=== PATIENT | female | born 1985 | race Hispanic/Latino ===

== ENCOUNTER 2016-10-29 14:54 | Emergency (ER) | payer OTHER ==
[~2016-10-29] VITALS: Ht 165.1 cm; Wt 86.2 kg
[~2016-10-29 14:54] MED LIST: ALBUTEROL0.09 MG/A1 INH; AUGMENTIN 500M500 MG PO; AUGMENTIN 875 M1 TAB PO; CHERATUSSIN AC120 ML PO; CYCLOBENZAPRINE10 M1 PO; CYCLOBENZAPRINE5 M2 PO; FLEXERIL10 MG PO; IBUPROFEN800 MG PO; MELOXICAM15 MG; MOBIC15 MG PO; NAPROXEN500 M2 PO; NASONEX0.05 MG/Ac NAS; NORCO 325 MG-51 TAB PO; PERCOCET 325 MG1 TA2 PO; PREDNISONE10 MG PO; TRAMADOL50 MG PO; ULTRAM50 M1 PO; VICODIN 5-3001 EACH PO; ZOFRAN4 M1 SL
[2016-10-29 14:57] VITALS: BP 114/75
--- NOTE | 2016-10-29 15:42 | ED INFLUENZA/URI COMPLAINT ---
History of Present Illness General Chief Complaint: Upper Respiratory Sx/Fever Stated Complaint: COUGH; L EAR PAIN Source: patient Exam Limitations: no limitations Vital Signs & Intake/Output Vital Signs & Intake/Output Vital Signs Date Time Temp Pulse Resp B/P Pulse O2 O2 Flow FiO2 Ox Delivery Rate 10/29 1457 97.5 82 18 114/75 97 Room Air Allergies Coded Allergies: erythromycin base (Severe, THROAT STARTS TO CLOSE UP 02/07/16) shellfish derived (Intermediate, HIVES 02/07/16) Reconcile Medications Azithromycin (Zithromax) 250 MG TABLET 1 DP PO AD otitis media 2 the first day followed by 1 for days 2-5 Mometasone Furoate (Nasonex) 50 MCG SPRAY.PUMP 2 SPRAY NASB DAILY congestion Robitussin AC (Guaifenesin-Codeine Syrup) 200 MG-20 MG/10 ML LIQUID 5 ML PO Q6HR PRN COUGH Tramadol HCl (Ultram) 50 MG TABLET 1 TAB PO TIDPRN Left shoulder pain Triage Note: COMPLAINS OF COUGH AND L EAR PAIN/PRESSURE X 1 WEEK Triage Nurses Notes Reviewed? yes Onset: Gradual Duration: week(s): (2) Timing: recent history Severity: moderate Severity Numbers: 8 Prior Episodes/Possible Cause: occassional episodes No Modifying Factors: none : No Patient currently breastfeeds: No HPI: Patient is a 31-year-old female presenting to the emergency Department chief complaint of upper respiratory congestion, sinus pain, left ear pain has been going on for the past 2 weeks. She saw her primary care physician initially and was found amoxicillin. She reports it has not helped symptoms. Has an using [id number] cough medication without relief. Denies any nausea or vomiting. Tactile fevers and chills. She did not get the flu shot this year. Denies abdominal pain. No sick contacts or recent travel. No urinary symptoms. Denies chance of . Denies any chest pain or palpitations. (FABI OSORIO) Past History Travel History Traveled to [place] past 21 day No Medical History Any Pertinent Medical History? see below for history Neurological: NONE EENT: NONE Cardiovascular: NONE Respiratory: asthma Gastrointestinal: NONE Hepatic: NONE Renal: NONE Musculoskeletal: NONE Psychiatric: anxiety Endocrine: NONE Blood Disorders: NONE Cancer(s): NONE Tetanus Vaccine: 07/29/16 Surgical History Surgical History: , tubal ligation, Septoplasty Psychosocial History What is your primary language Marshallese Tobacco Use: Never used ETOH Use: denies use Illicit Drug Use: denies illicit drug use Family History Hx Contributory? No (FABI OSORIO) Review of Systems Review of Systems Constitutional: Reports: fever, malaise. Comments Review of systems: See HPI, All other systems negative. Constitutional, no weight loss HEENT: No visual changes Cardiovascular: No chest pain ,palpitation , orthopnea or ankle swelling Skin, no jaundice no rashes Respiratory: No dyspnea sputum or hemoptysis GI: No nausea no vomiting : No dysuria No hematuria Muscle skeletal: no back pain, no neck pain, Neurologic: No numbness no confusion Psych: No stress anxiety Immunology: No splenectomy or history of AIDS (FABI OSORIO) Physical Exam Physical Exam General Appearance: well developed/nourished, no apparent distress, alert, awake , comfortable Ears, Nose, Throat: LEFT TYMPANIC MEMBRANE IS BULGING AND ERYTHEMATOUS Comments: Well-developed well-nourished person in no acute distress HEENT: Normal EENT exam, extraocular motion intact, no nystagmus. Pupils equally round and reactive to light and accommodation. Nose is atraumatic. External auditory canal clear bilaterally, left tympanic membrane is erythematous and bulging. Right tympanic membrane is clear. Pharynx is mildly erythematous, no exudate, clearing secretions without difficulty. No swelling or edema. Neck: Supple, no lymphadenopathy, normal range of motion without pain or tenderness Cardiovascular: Regular rate and rhythms no murmurs rubs or gallops, normal JVP Respiratory: Chest nontender. No respiratory distress.breath sounds clear to auscultation bilaterally Extremity: No edemA Neuro: Alert oriented x3 Skin: No appreciable rash on exposed skin, skin is warm and dry. Psych: Mood and affect is normal, memory and judgment is normal. Core Measures Severe Sepsis Present: No Septic Shock Present: No (FABI OSORIO) Progress Differential Diagnosis: influenza, pneumonia, pharyngitis, sinusitis Plan of Care: Symptoms have been going on for the past 2 weeks. No indication for. At this time. Patient does have left otitis media. She will be treated for those infections. She is requesting a Z-Gurjit, she was informed that a Z-Gurjit is not first line for otitis media. She wants to try it anyway. She'll follow-up with her primary care physician next week. Patient nontoxic. Initial ED EKG: none (FABI OSORIO) Departure Departure Time of Disposition: 1547 Disposition: HOME OR SELF CARE Condition: Stable Clinical Impression Primary Impression: Otitis media Qualifiers: Otitis media type: unspecified Laterality: left Chronicity: unspecified Qualified Code: H66.92 - Otitis media, unspecified, left ear Referrals: XANDER OLIVARES MD (PCP/Family) Additional Instructions: Follow-up with your primary care physician call to make an appointment. Increase fluids. Take Z-Gurjit as prescribed. Use Nasonex as prescribed for congestion. Take Robitussin with codeine as prescribed for cough. Return for worsening symptoms. Departure Forms: Customer Survey General Discharge Information Prescriptions: Current Visit Scripts Azithromycin (Zithromax) 1 DP PO AD #6 TAB 2 the first day followed by 1 for days 2-5 Mometasone Furoate (Nasonex) 2 SPRAY NASB DAILY #1 INHAL Robitussin AC (Guaifenesin-Codeine Syrup) 5 ML PO Q6HR PRN COUGH #200 ML (FABI OSORIO) PA/[employer] Co-Sign Statement Statement: ED Attending supervision documentation- [] I saw and evaluated the patient. I have also reviewed all the pertinent lab results and diagnostic results. I agree with the findings and the plan of care as documented in the PA's/[employer]'s documentation. [X] I have reviewed the ED Record and agree with the PA's/[employer]'s documentation. [] Additions or exceptions (if any) to the PAs/[employer]'s note and plan are summarized below: [] (SHELLY VELAZQUEZ,ASIF)
[2016-10-29] MEDS ORDERED: GUAIFENESIN-COD10 ML PO (15:52)
[2016-10-29] MEDS ORDERED: NASONEX17 GM NASB (15:52)
[2016-10-29] MEDS ORDERED: ZITHROMAX250 M2 PO (15:52)
== END 2016-10-29 16:07 ==
LOC: ERH 14:54
DX: H66.92 Otitis media, unspecified, left ear (principal)

== ENCOUNTER 2017-01-02 08:21 | Emergency (ER) | payer OTHER ==
[~2017-01-02] VITALS: Ht 165.1 cm; Wt 86.2 kg
[~2017-01-02 08:21] MED LIST changes: +GUAIFENESIN-COD10 ML PO; +NASONEX17 GM NASB; +ZITHROMAX250 M2 PO
--- NOTE | 2017-01-02 08:27 | ED DYSPNEA/ASTHMA COMPLAINT ---
History of Present Illness General Chief Complaint: Dyspnea (COPD, CHF, Other) Stated Complaint: SOB Source: patient Exam Limitations: no limitations Vital Signs & Intake/Output Vital Signs & Intake/Output Vital Signs Date Time Temp Pulse Resp B/P Pulse O2 O2 Flow FiO2 Ox Delivery Rate 01/02 1043 98.4 74 18 116/58 100 Room Air 01/02 0823 97.1 88 18 110/68 100 Room Air Allergies Coded Allergies: erythromycin base (Severe, THROAT STARTS TO CLOSE UP 02/07/16) shellfish derived (Intermediate, HIVES 02/07/16) Reconcile Medications No Known Home Medications Triage Nurses Notes Reviewed? yes Onset: Abrupt Duration: 6:30 am THIS MORNING Timing: single episode today Severity: moderate, severe Activities at Onset: sleep Prior Episodes/Possible Cause: no prior episodes Associated Symptoms: TROUBLE BREATHING : Yes Patient currently breastfeeds: No HPI: 31 year old female presents with chest pain radiating to left shoulder which woke her up from sleep. Pain radiates to her left shoulder. Doesn't feel like previous asthma. Positive nausea and acid refulx. Pain is worse with palpation , denies any pain with positioning. No recent trauma or injury. She has in indwelling Mirena and states that 2 days ago she checked at home test that she's been feeling nauseous and not herself. She states that home test was positive. No personal or family history of clotting disorders. She does not smoke. No recent sore throat cough or cold. Denies any fever or chills. Patient states that she is worried she might be as all of her other pregnancies have been through contraception. Past History Travel History Traveled to [place] past 21 day No Medical History Any Pertinent Medical History? see below for history Neurological: NONE EENT: NONE Cardiovascular: NONE Respiratory: asthma Gastrointestinal: NONE Hepatic: NONE Renal: NONE Musculoskeletal: NONE Psychiatric: anxiety Endocrine: NONE Blood Disorders: NONE Cancer(s): NONE Other Medical Hx: mirena placed 2014 Tetanus Vaccine: 07/29/16 Surgical History Surgical History: , tubal ligation, Septoplasty Psychosocial History What is your primary language Rw[place]an Tobacco Use: Never used ETOH Use: occasional use Illicit Drug Use: denies illicit drug use Family History Hx Contributory? No Review of Systems Review of Systems Constitutional: Denies: chills, fever. EENTM: Reports: no symptoms. Respiratory: Reports: short of breath (CAN'T TAKE DEEP BREATH). Denies: cough, sputum production. Cardiovascular: Reports: chest pain. GI: Denies: abdominal pain. Genitourinary: Reports: no symptoms. Musculoskeletal: Reports: no symptoms. Skin: Reports: no symptoms. Neurological/Psychological: Reports: no symptoms. Hematologic/Endocrine: Denies: bruising, bleeding, polyuria, polydipsia. Immunologic/Allergic: Denies: splenectomy. All Other Systems: Reviewed and Negative Physical Exam Physical Exam General Appearance: well developed/nourished, alert, awake Head: atraumatic, normal appearance Eyes: Bilateral: normal appearance, PERRL, EOMI. Ears, Nose, Throat: normal pharynx, normal ENT inspection, abnormal Tympanic (R) Respiratory: normal breath sounds, chest non-tender, no respiratory distress Cardiovascular: regular rate/rhythm Peripheral Pulses: 2+ radial (R), 2+ radial (L) Neurologic/Psych: no motor/sensory deficits, awake, alert, oriented x 3 Core Measures ACS in differential dx? Yes Severe Sepsis Present: No Septic Shock Present: No All Positive = PERC Ruled Out: Positive: age < 50 years, heart rate < 100 bpm, O2 sat > 94%, no hemoptysis, no prior DVT or PE, no unilateral leg swellin, no surgery/trauma w/in 4w. Negative : no hormone use. Progress Differential Diagnosis: asthma, bronchitis, costochondritis, musculoskeletal pain, pulmonary embolism, pneumonia, pneumothorax, unstable angina Plan of Care: Orders Procedure Date/time Status TROPONIN LEVEL 01/02 847 Complete PARTIAL THROMBOPLASTIN TIME 01/02 847 Complete PROTHROMBIN TIME 01/02 847 Complete HUMAN BETA HCG SCREEN 01/02 847 Complete D-DIMER 01/02 847 Complete COMPREHENSIVE METABOLIC PANEL 01/02 847 Complete CBC WITHOUT DIFFERENTIAL 01/02 847 Complete URINE 01/03 836 Complete EKG 01/02 830 Active Laboratory Tests 01/02/17 0904: Anion Gap 7, Estimated GFR > 60, BUN/Creatinine Ratio 12.9, Glucose 106 H, Calcium 9.2, Total Bilirubin 0.7, AST 28, ALT 50, Alkaline Phosphatase 71, Troponin I < 0.01, Total Protein 7.5, Albumin 4.0, Globulin 3.5, Albumin/ Globulin Ratio 1.1, Total Beta HCG NEGATIVE, PT 12.1, INR 1.15, APTT 29, D-Dimer 595 H, CBC w Diff NO MAN DIFF REQ, RBC 4.23, MCV 88.2, MCH 30.1, RDW 12.5, MPV 7.4, Gran % 69.3, Lymphocytes % 22.0, Monocytes % 6.3, Eosinophils % 2.1, Basophils % 0.3, Absolute Granulocytes 4.7, Absolute Lymphocytes 1.5, Absolute Monocytes 0.4, Absolute Eosinophils 0.1, Absolute Basophils 0, PUBS MCHC 34.2 01/02/17 0845: Urine Test NEGATIVE LABS, ORDERED. SUSPECT PE, ELEVEATED D-DIMER. NEGATIVE. CT ANGIOGRAM ORDERED. CT NEGATIVE. (SHELLY VELAZQUEZ,ASIF) Diagnostic Imaging: Viewed by Me: CT Scan. Discussed w/RAD: CT Scan. Radiology Impression: PATIENT: ANDRE HASTINGS PRESENT AGE: 31 PATIENT ACCOUNT NO: [id number] : 85 LOCATION: [facility] ORDERING PHYSICIAN: ASIF BRAVO MD SERVICE DATE: 01/02/17 EXAM TYPE: CAT - CTA CHEST-PULMONARY EMBOLISM EXAMINATION: CT ANGIOGRAM OF THE CHEST WITH AND WITHOUT CONTRAST (CT PULMONARY ANGIOGRAM FOR PE) CLINICAL INFORMATION: Chest pain, shortness of breath. COMPARISON: Chest x-ray from 03/07/2012 TECHNIQUE: Prior to contrast administration, noncontrast localization images were obtained. Subsequently, multidetector volumetric imaging was performed from the thoracic inlet to below the diaphragms following the administration of 93 mL Optiray 350 intravenous contrast. No contrast reaction reported. Sagittal, coronal, and MIP oblique sagittal reformatted images were obtained on the CT workstation, uploaded to PACS, and reviewed. Total exam dose-length product 497 mGy-cm. FINDINGS: QUALITY OF STUDY/CONTRAST BOLUS: Satisfactory PULMONARY ARTERIES: No central or segmental pulmonary emboli. THORACIC AORTA: No aneurysm or dissection. There is an incidental small ductus diverticulum. LUNG: No focal consolidation, nodules or masses. PLEURA: No pleural effusion or pneumothorax. MEDIASTINUM: Normal heart size. No pericardial effusion. No hilar or mediastinal lymphadenopathy. No evidence of septal bowing or right heart strain. CHEST WALL/ AXILLA: No axillary or internal mammary lymphadenopathy. OSSEOUS STRUCTURES: No acute or suspicious osseous abnormality. UPPER ABDOMEN: Unremarkable. No reflux of contrast into the hepatic veins to suggest elevated right heart pressures. IMPRESSION: No evidence of central or segmental pulmonary embolism. Clear lungs. VTE: negative DICTATED BY: KIN RO MD DATE/TIME DICTATED:01/02/171204 METAL TANK BUILDER:LUIS DATE/TIME TRANSCRIBED:01/02/171204 CONFIDENTIAL, DO NOT COPY WITHOUT APPROPRIATE AUTHORIZATION. <Electronically signed in Other Vendor System> SIGNED BY: KIN RO MD 01/02/17 1222 Initial ED EKG: NSR Departure Departure Time of Disposition: 1225 Disposition: HOME OR SELF CARE Condition: Stable Clinical Impression Primary Impression: Chest pain at rest Referrals: LUIS VELAZQUEZ,MARTHA OLIVARES MD,XANDER (PCP/Family) Additional Instructions: Follow-up with your primary care doctor as well as with the certified prosthetist listed. The CAT scan of the lungs was normal. Return to the ER for any changing or worsening symptoms. Take a deep open as needed for pain. Her test in the ER was negative. Departure Forms: Customer Survey General Discharge Information Prescriptions: Current Visit Scripts No Known Home Medications Critical Care Note Critical Care Note Critical Care Time: non-applicable
[2017-01-02 09:20] LABS: ABSOLUTE BASOPHIL COUNT 0 /CUMM (0.0-0.2); ABSOLUTE EOSINOPHIL COUNT 0.1 /CUMM (0.0-0.7); ABSOLUTE GRANULOCYTE CT 4.7 /CUMM (1.4-6.5); ABSOLUTE LYMPH COUNT 1.5 /CUMM (1.2-3.4); ABSOLUTE MONOCYTE COUNT 0.4 /CUMM (0.10-0.60); BASOPHIL % 0.3 % (0.0-2.0); EOSINOPHIL % 2.1 % (0-5); GRANULOCYTE % 69.3 % (42.2-75.2); HEMATOCRIT 37.3 % (37-47); MEAN CORPUSCULAR HGB 30.1 PG (27.0-31.0); MEAN CORPUSCULAR HGB CONC 34.2 G/DL (33.0-37.0); MEAN CORPUSCULAR VOLUME 88.2 FL (81.0-99.0); MEAN PLATELET VOLUME 7.4 FL (7.4-10.4); PLATELET COUNT 354 /CUMM (130-400); RBC DISTRIBUTION WIDTH 12.5 % (11.5-14.5); RED BLOOD CELL CT 4.23 /CUMM (4.20-5.40); WHITE BLOOD CELL COUNT 6.7 /CUMM (4.8-10.8)
[2017-01-02 09:26] LABS: PT 12.1 SEC (9.4-12.5); PTT 29 SEC (25-37)
--- NOTE | 2017-01-02 12:22 | CT SCAN REPORT ---
EXAMINATION: CT ANGIOGRAM OF THE CHEST WITH AND WITHOUT CONTRAST (CT PULMONARY ANGIOGRAM FOR PE) CLINICAL INFORMATION: Chest pain, shortness of breath. COMPARISON: Chest x-ray from 03/07/2012 TECHNIQUE: Prior to contrast administration, noncontrast localization images were obtained. Subsequently, multidetector volumetric imaging was performed from the thoracic inlet to below the diaphragms following the administration of 93 mL Optiray 350 intravenous contrast. No contrast reaction reported. Sagittal, coronal, and MIP oblique sagittal reformatted images were obtained on the CT workstation, uploaded to PACS, and reviewed. Total exam dose-length product 497 mGy-cm. FINDINGS: QUALITY OF STUDY/CONTRAST BOLUS: Satisfactory PULMONARY ARTERIES: No central or segmental pulmonary emboli. THORACIC AORTA: No aneurysm or dissection. There is an incidental small ductus diverticulum. LUNG: No focal consolidation, nodules or masses. PLEURA: No pleural effusion or pneumothorax. MEDIASTINUM: Normal heart size. No pericardial effusion. No hilar or mediastinal lymphadenopathy. No evidence of septal bowing or right heart strain. CHEST WALL/AXILLA: No axillary or internal mammary lymphadenopathy. OSSEOUS STRUCTURES: No acute or suspicious osseous abnormality. UPPER ABDOMEN: Unremarkable. No reflux of contrast into the hepatic veins to suggest elevated right heart pressures. IMPRESSION: No evidence of central or segmental pulmonary embolism. Clear lungs. VTE: negative
[2017-01-02 12:35] VITALS: BP 108/68
== END 2017-01-02 12:34 ==
LOC: ERH 08:21
PROVIDERS: Emergency Medicine
DX: R07.9 Chest pain, unspecified (principal)
CPT/HCPCS: 81025; 93005; 93010; 96374; 96375; J1200; J2930